=== PATIENT | female | born 1960 | race African-American/Black ===

== ENCOUNTER 2017-08-27 19:35 | Emergency (ER) | payer MEDICARE ==
[2017-08-27 20:09] LABS: Mean Corpuscular HGB CONC 32.8 g/dL (32.0-36.0); Mean Corpuscular Hemoglobin 24.3 pg (27.0-31.0); Mean Platelet Volume 9.5 fL (7.4-10.4); Platelet Count 119 thou/uL (130-400); RBC Distribution Width 13.9 % (11.5-14.5); Red Blood Cell (RBC) Count 4.93 mill/uL (4.20-5.40); White Blood Cell (WBC) Count 9.3 thou/uL (4.8-10.8)
[2017-08-27 20:22] LABS: ALT (SGPT) 21 U/L (8-55); AST (SGOT) 45 U/L (5-34); Albumin 3.8 g/dL (3.5-5.0); Alkaline Phosphatase 67 U/L (40-150); Anion Gap 13 mmol/L (10-20); BUN (Urea Nitrogen) 17 mg/dL (9.8-20.1); Bilirubin, Total 0.4 mg/dL (0.2-1.2); Calc. Creatinine Clearance 0 mL/min (70-130); Carbon Dioxide 21 mmol/L (22-29); Chloride 99 mmol/L (98-107); Estimated GFR-MDRD 35; Globulin 3.7 g/dL (2.4-3.5); Glucose 171 mg/dL (70-105); Potassium 3.8 mmol/L (3.5-5.1); Protein, Total 7.5 g/dL (6.0-8.3); Sodium 129 mmol/L (136-145)
[2017-08-27 20:30] LABS: Anisocytosis SLIGHT = 6-15 cells (100X) (0-5/hpf); Band 15 % (5-11); Lymphocytes 10 % (21-51); MDiff Complete? YES; Microcytosis SLIGHT = 6-15 cells (100X) (0-5/hpf); Monocytes 4 % (0-10); Neutrophil 71 % (42-75); Ovalocytes SLIGHT = 2-5 cells (100X) (0-1/hpf); PLT Morphology Comment Appears Decreased
[2017-08-27 21:13] LABS: Bilirubin Negative (Negative); Clarity CLEAR (Clear); Glucose, Urine (Dipstick) Negative (Negative); Leukocyte Trace (Negative); Nitrite Negative (Negative); Protein, Urine (Dipstick) 100 mg/dL (Neg-Trace); Specific Gravity, Urine 1.007 (1.002-1.036); Urobilinogen 0.2 mg/dL (0.2-1.0); pH, Urine 6.5 (5.0-9.0)
[2017-08-27] MEDS ORDERED: Acetaminophen 500 MG TAB ONE (21:22)
[2017-08-27 21:27] LABS: Bacteria/HPF None Seen HPF (None Seen); Blood, Urine Negative (Negative); Hyaline Casts/LPF 0-3 HYALINE CAST LPF (0-3 Hyaline); RBC/HPF 0-3 HPF (0-3); Squamous Epithelial 0-3 HPF (0-3); WBC/HPF 0-3 HPF (0-3)
== END 2017-08-27 23:29 | disposition home or self-care (01) ==
LOC: ERS 19:35
DX: N28.89 Other specified disorders of kidney and ureter (principal); E78.00 Pure hypercholesterolemia, unspecified; Z79.899 Other long term (current) drug therapy; Z94.0 Kidney transplant status
CPT/HCPCS: 80053; 81003; 81015; 83605; 85025; 87040; 87077; 87086; 87186; 96360; 96361

== ENCOUNTER 2018-01-27 14:33 | Outpatient (CLI) | payer MEDICARE | END 2018-01-27 14:34 | disposition home or self-care (01) | LOC: BICMAMMO 14:33 | PROVIDERS: ATTEND Internal Medicine | DX: Z12.31 Encounter for screening mammogram for malignant neoplasm of breast (principal) | CPT/HCPCS: 77063; 77067 ==

== ENCOUNTER 2018-04-07 17:30 | Emergency (ER) | payer MEDICARE, OTHER ==
--- NOTE | 2018-04-07 18:38 | RAD ---
AP VIEW PELVIS: HISTORY: Patient complaining of coccygeal pain. TECHNIQUE: AP view pelvis obtained. FINDINGS: Images demonstrate areas of heterogeneous sclerotic change seen in the right and left proximal femora l head, neck, and intertrochanteric portions. These may represent areas of osteonecrosis or possible blastic osseous lesions. Subtle area of asymmetric increased density is also seen involving the right superior pubic ramus. No evidence of acute bony lesions seen. IMPRESSION: 1. Areas of sclerotic osseous lesions, concerning for blastic bony pathology versus avascular necros is of the bones. 2. No evidence of acute pelvic fractures or bony lesions seen. POS: AMITA
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
== END 2018-04-07 19:28 | disposition home or self-care (01) ==
LOC: ERS 17:30
DX: S30.0XXA Contusion of lower back and pelvis, initial encounter (principal); E78.00 Pure hypercholesterolemia, unspecified; I10 Essential (primary) hypertension; Z79.899 Other long term (current) drug therapy; V43.62XA Car passenger injured in collision with other type car in traffic accident, initial encounter
CPT/HCPCS: 72170; 72220

== ENCOUNTER 2019-02-10 13:18 | Outpatient (CLI) | payer MEDICARE ==
--- NOTE | 2019-02-10 14:30 | BD ---
DEXA BONE DENSITY EXAM: HISTORY: A 58-year-old postmenopausal female for screening. FINDINGS: LUMBAR SPINE BMD (g/cm2) T-SCORE L1 0.666 -2.9 L2 0.736 -2.7 L3 0.666 -3.8 L4 0.657 -0.7 TOTAL L1-L4 0.681 -3.3 LEFT FEMORAL NECK 0.882 0.3 TOTAL PROXIMAL LEFT FEMUR 0.798 -1.2 IMPRESSION: Osteoporosis. POS: OFF
--- NOTE | 2019-02-10 14:33 | MMO ---
Bilateral MAMMO Bilat Screen [facility]. CLINICAL HISTORY: Patient is 58 years old and is seen for screening. The patient has no family history of breast cancer. The patient has no personal history of cancer. VIEWS: The views performed were: bilateral craniocaudal with tomosynthesis and bilateral mediolateral oblique with tomosynthesis. FILMS COMPARED: The present examination has been compared to prior imaging studies performed at [facility] on 12/21/2014, 12/23/2015, 12/24/2016 and 01/27/2018. This study has been interpreted with the assistance of computer-aided detection. MAMMOGRAM FINDINGS: The breasts are heterogeneously dense, which could obscure a lesion on mammography. There are stable benign appearing calcifications seen in both breasts. There are also vascular calcifications. There are no suspicious masses, suspicious calcifications, or new areas of architectural distortion. IMPRESSION: THERE IS NO MAMMOGRAPHIC EVIDENCE OF MALIGNANCY. A ROUTINE FOLLOW-UP MAMMOGRAM IN 1 YEAR IS RECOMMENDED. THE RESULTS OF THIS EXAM WERE SENT TO THE PATIENT. ACR BI-RADS Category 2 - Benign finding MAMMOGRAPHY NOTE: 1. A negative mammogram report should not delay a biopsy if a dominant of clinically suspicious mass is present. 2. Approximately 10% to 15% of breast cancers are not detected by mammography. 3. Adenosis and dense breasts may obscure an underlying neoplasm. Reported by: MARIE SIBLEY MD Electonically Signed: [id number]
== END 2019-02-10 13:19 | disposition home or self-care (01) ==
LOC: BICMAMMO 13:18
PROVIDERS: ATTEND Internal Medicine
DX: Z12.31 Encounter for screening mammogram for malignant neoplasm of breast (principal); Z13.820 Encounter for screening for osteoporosis; M81.0 Age-related osteoporosis without current pathological fracture; M85.851 Other specified disorders of bone density and structure, right thigh
CPT/HCPCS: 77063; 77067; 77080